=== PATIENT | male | born 1970 | race Caucasian/White ===

== ENCOUNTER 2018-05-31 22:36 | Observation (INO) | payer BC, OTHER ==
--- NOTE | 2018-05-31 22:50 | ED.PDOC ---
History of Present Illness - General Chief Complaint: Abdominal Pain Stated Complaint: rlq pain, nausea Time Seen by Provider: 05/31/18 22:42 Information Source: patient, RN notes reviewed Exam Limitations: no limitations - History of Present Illness Initial Comments: The patient presents to the emergency room complaining of right lower quadrant pain. The patient states that this has been present for the past 48 hours and progressively getting worse. The patient states that this pain is deep, throbbing in nature. He states it is aggravated with palpation. He states that it is alleviated with resting. The patient states no fever/chills/vomiting/ diarrhea/dysuria/testicular pain noted. Review of Systems - Review of Systems Review of Systems: 05/31/18 22:50 A 10 pt review of systems was done at the bedside and is negative except as noted in the patient's HPI Past Medical History (General) - Patient Medical History Hx MRSA: Yes - Leg 2011 MRSA Source:: Wound Family Medical History - Family History Father Living Status: Still Living Hx Family Hypertension: Yes Hx Family Diabetes: Yes Hx Family Cancer: Yes - leukemia Mother Living Status: Hx Family Cancer: Yes - colon Physical Exam - Physical Exam General Appearance: Alert, Well Developed Eyes, Ears, Nose, Throat Exam: PERRL/EOMI Respiratory: chest non-tender, lungs clear Cardiovascular/Chest: regular rate, rhythm Gastrointestinal/Abdominal: normal bowel sounds, soft, tenderness - +rlq ttp noted with +rebound., other Male Genitalia: normal genitalia Back Exam: normal inspection, no CVA tenderness Extremity: normal range of motion Neurologic: alert, oriented x 3 Skin Exam: normal color Progress - Progress Progress: 05/31/18 22:52 MDM PT PRESENTATION APPEARS TO BE AN ACUTE EXACERBATION OF ABD PAIN. APPENDECITIS UNLIKELY DUE TO PRESENTATION WELL LOCATION OF PAIN. PANCREATITIS ALSO ON THE DDX WHICH WE WILL EVALUATE VIA LIPASE. ISCHEMIC BOWEL LOWER ON THE DIFFERENTIAL DUE TO AGE WELL PATIENT VITALS BEING STABLE. AMI/DKA UNLIKELY DUE TO HOW THIS PATIENT PRESENTED AND NO COMPLAINTS OF SIGNS/SYMPTOMS OF THESE ISSUES. COLITIS ALSO A CONSIDERATION DUE TO PAIN LOCATION AND PRESENTATION WHICH WE WILL EVALUATE VIA CT SCAN. RENAL/URETERAL STONES ARE ALSO ON THE DIFFERENTIAL DUE TO PRESENTATION WELL LOCATION OF PAIN ON PRESENTATION. PT WILL RECEIVE BASICS LABS AND CT ABD/PEL TO EVALUATE FOR FOREMENTIONED INTRAABDOMINAL PATHOLOGY 05/31/18 23:57 The patient remains stable at this time. He has been advised of all radiological/lab results at this time. The patient is advised that he is suffering from acute diverticulitis at this time. The patient is advised that due to his pain being so intense in nature he requires admission for iv abx. The patient and his are in agreement w/ this plan. - Consult/PCP Time Called: 00:01 Consult/PCP: VICTORINA PILE DRIVER OPERATOR HELPER Consult Reason/Comments: ACCEPTS THE PATIENT INTO HIS CARE AT THIS TIME. Departure - Departure Clinical Impression: Abdominal pain, Diverticulitis Disposition: Admit Patient Condition: Fair Decision To Admit - Decistion To Admit Decision to Admit Reason: Admit from ER Decision to Admit Date: 06/01/18 Decision to Admit Time: 00:01
[2018-05-31] MEDS ORDERED: SODIUM CHLORIDE 0.9% 1000ML 1,000 ML IVS ONE (22:53)
[2018-05-31] MEDS ORDERED: IV SET AND CAP CHANGE INJ INJ SCH (23:45)
--- NOTE | 2018-05-31 23:48 | CT ---
EXAM: CT abdomen and pelvis with contrast. INDICATION: Abdominal pain, acute. TECHNIQUE: Contiguous axial CT images of the abdomen and pelvis. Intravenous contrast: Present. Oral contrast: Absent. DLP 1416 mGy-cm. This exam was performed according to our departmental dose-optimization program, which includes automated exposure control, adjustment of the mA and/or kV according to patient size and/or use of iterative reconstruction technique. COMPARISON: 10/02/2012. FINDINGS: Lower chest: Partially imaged. Lung bases: Unremarkable. Cardiac apex: Unremarkable. Solid abdominal viscera: Liver: Unremarkable. Gallbladder: Unremarkable. Pancreas: Unremarkable. Spleen: Unremarkable. Adrenal glands: Unremarkable. Right kidney: No hydronephrosis. There is a 1.2 cm cyst. Left kidney: No hydronephrosis. There is a 1.5 cm cyst. There is a punctate nonobstructing stone along the mid pole Urinary bladder: Unremarkable. Abdominal aorta: Unremarkable. Peritoneal: Free fluid: None. Free air: None. Other: No pathologic sized lymph nodes in the upper abdomen. Bowel: Stomach: Unremarkable. Small bowel: Unremarkable. Appendix: Unremarkable. Colon: Sigmoid diverticulitis is noted without evidence of a perforation or abscess/phlegmon formation. Rectum: Unremarkable. Prostate: Unremarkable. Bones: Unremarkable. IMPRESSION: Uncomplicated sigmoid diverticulitis. Normal appendix. Punctate nonobstructing left-sided nephrolithiasis Electronically signed by: Kareem Douglas MD 05/31/2018 11:46 PM RADIATION CONTROL SPECIALIST Workstation: [id number]
[2018-05-31] MEDS ORDERED: cefTRIAXone SODIUM 1 GM VIAL IM ONE (23:51)
[2018-05-31] MEDS ORDERED: metroNIDAZOLE IV PREMIX 500MG 500 MG in PREMIX BAG 1 BAG IVPB ONE (23:52)
[2018-05-31] MEDS ORDERED: SODIUM CHLORIDE 0.9% (FLUSH) 10 ML SYG IV PRN (23:57)
[2018-05-31] MEDS ORDERED: MORPHINE SULFATE INJ 10 MG/ML VIAL IV PRN (23:57)
[2018-05-31] MEDS ORDERED: LACTATED RINGERS 1,000 ML IVS PRN (23:57)
[2018-06-01] MEDS ORDERED: levoFLOXacin 750MG IV 750 MG in PREMIX BAG 1 BAG IVPB SCH
[2018-06-01] MEDS ORDERED: metroNIDAZOLE IV PREMIX 500MG 0 ML IVPB ONE (00:20)
[2018-06-01] MEDS ORDERED: SODIUM CHL 0.9% 100ML MINI-BAG 0 ML IVPB ONE (00:22)
[2018-06-01] MEDS ORDERED: metroNIDAZOLE IV PREMIX 500MG 100 ML IVPB ONE ×2 (00:29→07:53)
[2018-06-01] MEDS ORDERED: LIDOCAINE 1% 2 ML VIAL INJ ONE (00:30)
[2018-06-01] MEDS: metroNIDAZOLE IV PREMIX 500MG 500 MG in PREMIX BAG 1 BAG IVPB SCH ×2 (00:53→07:54)
[2018-06-01] MEDS ORDERED: metroNIDAZOLE 500 MG TAB PO ONE (09:08)
[2018-06-01] MEDS ORDERED: MAGNESIUM HYDROXIDE 30 ML UD PO ONE (09:20)
[2018-06-01 11:07] VITALS: BP 148/74; TEMP 97.8; O2SAT 98
--- NOTE | 2018-06-01 19:19 | SSS ---
SUPERVISING PHYSICIAN: Abdi Wilson M.D. CHIEF COMPLAINT: Right lower quadrant pain with nausea. HISTORY OF PRESENT ILLNESS: Mr. Jimenez is a 48 year-old male patient that presented to the Emergency Department complaining of right lower quadrant pain. He noted that the pain had been present for well over 48 hours but had progressively gotten worse. He noted the pain was deep, throbbing and that it was aggravated with palpation. He states that it is better with rest and was denying any fevers, chills, vomiting, diarrhea, dysuria or testicular pain. His workup in the E. R. showed on laboratory studies, he had a normal white count at 10,500 with a normal differential. Chemistries were unremarkable. Urinalysis was within normal limits except for just a trace of intact blood. Radiographically he had an abdominal/pelvis CT with contrast and per radiology interpretation there was note of uncomplicated sigmoid diverticulitis and a normal appendix with a punctate, nonobstructing left sided nephrolithiasis. The patient was started on Levaquin and Flagyl for uncomplicated diverticulitis but was requiring IV pain management, therefore was admitted overnight for further treatment and evaluation. He was placed in observation in stable condition. PAST MEDICAL HISTORY: 1. Asthma. 2. Hypertension. PAST SURGICAL HISTORY: CURRENT MEDICATIONS: 1. Prilosec 20 mg daily. 2. Losartan potassium 100 mg daily. 3. Ventolin inhaler 1 puff daily as needed. 4. Breo ellipta 200-25 one puff as needed. ALLERGIES: PNEUMONIA VACCINE. FAMILY HISTORY: Father is still alive but has hypertension and type 2 diabetes and leukemia. Mother at age 47 from colon cancer. SOCIAL HISTORY: The patient is . He is a ranch jolly. He lives in [place]. He has never smoked but does use smokeless tobacco and rarely drinks alcohol. Does not use illicit drugs. REVIEW OF SYSTEMS: CONSTITUTIONAL: Denies any fevers, chills, malaise, unintentional weight loss, night sweats. HEENT: Denies any nasal congestion, headaches, sore throat, ear aches, vision changes. RESPIRATORY: Denies any shortness of breath, coughing or wheezing. CARDIOVASCULAR: Denies any chest pains, palpitations, syncopal episode or edema. GASTROINTESTINAL: As noted in History of Present Illness, right lower quadrant pain. GENITOURINARY: Denies any dysuria, hematuria or polyuria or other urinary symptoms. MUSCULOSKELETAL: Denies any arthralgias, myalgias or any CVA tenderness. NEUROLOGIC: Denies any syncopal episodes, seizures, ataxia or other motor or neurological deficits. PHYSICAL EXAMINATION: VITAL SIGNS: On presentation to the E. ., temperature was 97.1, pulse 77, blood pressure 124/83, respirations 18, satting 99% on room air. Weight was 114.7 kg. GENERAL: The patient is well nourished and well hydrated. Appears to be in no acute distress and alert. HEENT: Tympanic membranes are clear bilaterally. Oropharynx was pink and moist without any lesions. NECK: Supple, non-tender with full range of motion. No jugular venous distention. CHEST: Clear to auscultation bilaterally without any rhonchi, wheezing or rales. CARDIOVASCULAR: Regular rate and rhythm without appreciable murmurs, gallops, or rubs. ABDOMEN: Soft with some diffuse tenderness initially on presentation to the E. R. as reported by E. R. physician but on discharge examination was without any abdominal pains. NEUROLOGIC: He is alert and oriented times three. LABORATORY: Initial CBC showed to be within normal limits with white count of 10,500, at discharge 8,200. Hemoglobin and hematocrit were stable at 14.1 and 41.6 respectively with platelet count 233,000. Differential is without a left shift. Admission chemistries showed normal electrolytes, normal lipase and normal liver enzymes at discharge. Electrolytes were normal with BUN 12, creatinine 0.96. Urinalysis just showed a trace of intact blood, otherwise within normal limits. MICROBIOLOGY: He had 2 sets of blood cultures that were negative at discharge. RADIOLOGY: He had an abdominal/pelvis CT with contrast that showed uncomplicated sigmoid diverticulitis with normal appendix and punctate nonobstructing left sided nephrolithiasis. HOSPITAL COURSE: Mr. Jimenez was admitted through the E. . on the late night around midnight of 05/31/18 for uncomplicated sigmoid diverticulitis. He was admitted for some pain control and only required 1 IV pain management and was able to transition to p.o. medication. He was started on Flagyl and Levaquin. He was given fluids, kept NPO overnight and on the morning of discharge was no longer having any abdominal pains. He actually had a bowel movement and was able to transition to clear liquids and prior to discharge he had transitioned to full liquids and was having no complications. ASSESSMENT AT DISCHARGE: VITAL SIGNS: Temperature 97.6, pulse 65, blood pressure 141/79, respirations 16 , satting 99% on room air. GENERAL: The patient is resting comfortably, appears in no acute distress. CHEST: Clear to auscultation. HEART: Regular rate and rhythm. ABDOMEN: Soft with no rebound tenderness. No tenderness to palpation with positive bowel sounds. EXTREMITIES: Without any clubbing, cyanosis or edema. NEUROLOGIC: He is alert and oriented times three. LABORATORY ON DISCHARGE: Continue to show normal electrolytes and normal CBC. ASSESSMENT: 1. Acute sigmoid diverticulitis, uncomplicated as noted on CT findings. Able to transition to p.o. diet and tolerating oral medications, and able to be managed as an outpatient. 2. Acute abdominal pains on admission secondary to #1, improved prior to discharge. 3. Nonobstructing punctate left sided nephrolithiasis. 4. Microhematuria secondary to above. 5. Chronic hypertension, stable. 6. History of asthma without any signs of exacerbation. PLAN: The patient is going to be transitioned to outpatient management as he did well overnight in observation without any complications. He was able to transition to oral diet and was not requiring any IV medications,and was no longer having significant pain. He was instructed on a diet to increase fiber as tolerated and to avoid foods that are known to exacerbate diverticulitis. He reported his last scope was 2 to 3 years previously and again will need to followup with his gastrointestinal specialist to have additional workup as an outpatient. He will need followup with his primary care physician next week, Dr. Morgan. He is to increase his activity as tolerated and again was encouraged to slowly advance his diet as tolerated. New prescriptions at discharge included: 1. Levaquin 750 every day for an additional 9 days. 2. Flagyl 500 mg 3 times a day for an additional 9 days, #27. No refills. 3. Tylenol with codeine #3, one tablet every 4 hours as needed for pain, #30. He was instructed to return to the E. R. should he have any complicating symptoms or other worsening symptoms, or any increase in pain or change in his stools. Condition at discharge was stable and improved. #[id number] MTDD
== END 2018-06-01 11:14 | disposition home or self-care (01) ==
LOC: ER 22:36 → UNDOADMOB 06-01 00:15 → MS 06-01 00:15
PROVIDERS: ADMIT Nurse Practitioner; ATTEND Nurse Practitioner Family
DX: K57.32 Diverticulitis of large intestine without perforation or abscess without bleeding (principal); N20.0 Calculus of kidney; R31.29 Other microscopic hematuria; I10 Essential (primary) hypertension; J45.909 Unspecified asthma, uncomplicated; F17.220 Nicotine dependence, chewing tobacco, uncomplicated; N28.1 Cyst of kidney, acquired; Z79.51 Long term (current) use of inhaled steroids; Z79.899 Other long term (current) drug therapy; Z88.7 Allergy status to serum and vaccine; Z82.49 Family history of ischemic heart disease and other diseases of the circulatory system; Z80.0 Family history of malignant neoplasm of digestive organs; Z83.3 Family history of diabetes mellitus; Z80.6 Family history of leukemia
CPT/HCPCS: 96361; 96367; 96365; 96375; 96376; 96372; J0696; J3490 ×2; J2270; J7030; J1956; J7120; 80048; 80053; 36415 ×2; 81001; 85025 ×2; 87040 ×2; 83690; 74177; 99285

== ENCOUNTER 2019-02-23 21:17 | Emergency (ER) | payer OTHER ==
[2019-02-23] MEDS ORDERED: PROCHLORPERAZINE INJ 10 MG/2 ML VIAL IV ONE (22:11)
[2019-02-23] MEDS ORDERED: DEXAMETHASONE INJ 4 MG/ML VIAL IV ONE (22:11)
[2019-02-23] MEDS ORDERED: ONDANSETRON INJ 4 MG/2 ML VIAL ONE (22:18)
[2019-02-23] MEDS ORDERED: ONDANSETRON INJ 4 MG/2 ML VIAL IV ONE (22:20)
--- NOTE | 2019-02-23 22:45 | CT ---
EXAM DESCRIPTION: Head CLINICAL HISTORY: dizzy/headache COMPARISON: MRI brain July 21, 2013 TECHNIQUE: Multiple helical axial tomographic images were obtained of the head without intravenous contrast. Coronal and sagittal reformatted images were obtained. This exam was performed according to our departmental dose-optimization program, which includes automated exposure control, adjustment of the mA and/or kV according to patient size and/or use of iterative reconstruction technique. FINDINGS: There is no acute intracranial hemorrhage. No mass. No midline shift. No ventriculomegaly. Gaytan-white matter differentiation is maintained. Mild paranasal sinus mucosal thickening is present. Mastoid air cells and middle ear spaces are clear. Orbits and orbital contents are unremarkable. Osseous structures are unremarkable. Surrounding soft tissues are unremarkable. IMPRESSION: No acute intracranial process. Electronically signed by: Gabe Everett MD 02/23/2019 10:44 PM CDT
--- NOTE | 2019-02-23 23:25 | ED.PDOC ---
History of Present Illness - General Chief Complaint: General Stated Complaint: dizziness/nauseated Time Seen by Provider: 02/23/19 22:10 Source: patient Exam Limitations: no limitations - History of Present Illness Initial Comments: Rangel Jimenez 48 y/o male stated that he had been feeling dizzy stating like being spinned around since this morning with feeling of nausea;denies any heavy drinking,head injury,chest pains ,blurry vision.no chronic medical problems.no tinnitus,no hearing loss. Timing/Duration: 4-6 hours Severity: moderate Improving Factors: nothing Worsening Factors: nothing Associated Symptoms: other - see hpi Allergies/Adverse Reactions: Allergies pneumonia vaccine Adverse Reaction (Uncoded 06/01/18 01:30) hives Home Medications: Ambulatory Orders Acetaminophen W/ Codeine [Tylenol W/ CODEINE #3] 1 tablet PO Q4HR PRN #30 06/01/18 Albuterol Inhaler [Ventolin Hfa Inhaler] 1 puff INH PRN 06/01/18 Fluticasone Furoate-Vilanterol [Breo Ellipta 200-25 Mcg/INH] 1 puff INH PRN 06/01/18 Levofloxacin [Levaquin] 750 mg PO DAILY #9 tablet 06/01/18 Losartan Potassium 100 mg PO DAILY 06/01/18 Omeprazole [Prilosec Cap] 20 mg PO ACBK 06/01/18 metroNIDAZOLE [Flagyl] 500 mg PO TID #27 tab 06/01/18 Alprazolam 0.5 mg PO TID PRN #14 tab 02/23/19 predniSONE 20 mg PO DAILY 7 Days #7 tab 02/23/19 Review of Systems - Review of Systems Constitutional: States: no symptoms reported EENTM: States: no symptoms reported Respiratory: States: no symptoms reported Cardiology: States: no symptoms reported Gastrointestinal/Abdominal: States: no symptoms reported Genitourinary: States: no symptoms reported Musculoskeletal: States: no symptoms reported Skin: States: no symptoms reported Neurological: States: see HPI, other - dizziness Past Medical History (General) - Patient Medical History Hx Seizures: No Hx Stroke: No Hx Asthma: Yes Hx of COPD: No Hx Congestive Heart Failure: No Hx Pacemaker: No Hx Hypertension: No Hx Diabetes: No Hx MRSA: Yes MRSA Source:: Wound Surgical History: no surgical history - Vaccination History Hx Tetanus, Diphtheria Vaccination: Yes Hx Influenza Vaccination: No - Social History Hx Tobacco Use: Yes Hx Chewing Tobacco Use: Yes Hx Alcohol Use: No Hx Substance Use: No Hx Substance Use Treatment: No Hx Physical Abuse: No Hx Emotional Abuse: No Hx Suspected Abuse: No Family Medical History - Family History Father Living Status: Still Living Hx Family Hypertension: Yes Hx Family Diabetes: Yes Hx Family Cancer: Yes - leukemia Mother Name: father Living Status: Still Living Hx Family Hypertension: Yes Hx Family Cancer: Yes - colon Age of Onset (years of age): 60 Physical Exam - Physical Exam General Appearance: Alert, Comfortable, No apparent distress Eye Exam: bilateral normal Ears, Nose, Throat: hearing grossly normal, normal ENT inspection, normal pharynx Neck: full range of motion, supple, normal inspection Respiratory: chest non-tender, lungs clear, normal breath sounds Cardiovascular/Chest: normal peripheral pulses, regular rate, rhythm, no murmur Peripheral Pulses: radial,right: 2+, radial,left: 2+ Gastrointestinal/Abdominal: non tender, soft, no organomegaly Back Exam: normal inspection, no CVA tenderness Extremity: no pedal edema, no calf tenderness Neurologic: appointment manager II-XII nml as tested, no motor/sensory deficits, alert, oriented x 3, other - speaks in full sentences Skin Exam: normal color, warm/dry Progress - Progress Progress: 02/23/19 23:27 Vital Signs - 8 hr 02/23/19 02/23/19 21:17 22:41 Temperature 98.3 F 98.5 F Pulse Rate [r 68 70 finger] Respiratory 16 16 Rate Blood Pressure 170/110 138/71 [r arm] O2 Sat by Pulse 98 99 Oximetry - Results/Orders Results/Orders: Vital Signs - 8 hr 02/23/19 02/23/19 21:17 22:41 Temperature 98.3 F 98.5 F Pulse Rate [r 68 70 finger] Respiratory 16 16 Rate Blood Pressure 170/110 138/71 [r arm] O2 Sat by Pulse 98 99 Oximetry Laboratory Results - last 24 hr 02/23/19 02/23/19 21:35 22:46 WBC 9.4 RBC 5.01 Hgb 15.6 Hct 45.4 MCV 90.7 MCH 31.0 MCHC 34.2 RDW 14.2 Plt Count 237 MPV 7.0 L Absolute Neuts (auto) 5.10 Absolute Lymphs (auto) 2.90 Absolute Monos (auto) 0.90 H Absolute Eos (auto) 0.50 H Absolute Basos (auto) 0.00 Neutrophils % 54.1 Lymphocytes % 30.6 Monocytes % 9.3 H Eosinophils % 5.5 H Basophils % 0.5 PT 10.1 INR 1.01 PTT (SP) 24.5 Sodium 137 Potassium 4.0 Chloride 103 Carbon Dioxide 23 Anion Gap 15.0 BUN 13 Creatinine 1.09 BUN/Creatinine Ratio 11.9 Random Glucose 99 Serum Osmolality 274.0 L Calcium 8.9 Magnesium 2.1 Total Bilirubin 0.6 Direct Bilirubin 0.1 Indirect Bilirubin 0.5 AST 28 ALT 30 Alkaline Phosphatase 65 Creatine Kinase 80 CK-MB (CK-2) 1.6 CK-MB (CK-2) % Not Reportable Troponin I < 0.02 Serum Total Protein 7.0 Albumin 3.9 Urine Color Yellow Urine Appearance Clear Urine pH 7.0 Ur Specific [place] 1.025 Urine Protein Negative Urine Glucose (UA) Negative Urine Ketones Negative Urine Blood Negative Urine Nitrite Negative Urine Bilirubin Negative Urine Urobilinogen 0.2 Ur Leukocyte Esterase Negative Urine RBC 0-1 Urine WBC 0-1 Ur Epithelial Cells 0 Amorphous Sediment Trace Urine Bacteria 0 Urine Mucus Moderate Discuss all test results with patient - EKG/XRAY/CT CT Ordered: Yes - head-no acute abnormalities noted Departure - Departure Clinical Impression: Vertigo Time of Disposition: 23:34 Disposition: Discharge to Home or Self Care Condition: Fair Departure Forms: ED Discharge - Pt. Copy, Patient Portal Self Enrollment Instructions: Vertigo (a Type of Dizziness), Labyrinthitis, Vertigo (a Type of Dizziness) (DC) Referrals: MEREDITH JACINTO MD [Primary Care Provider] - 1-2 Weeks Prescriptions: Alprazolam 0.5 mg PO TID PRN #14 tab PRN Reason: Dizziness predniSONE 20 mg PO DAILY 7 Days #7 tab Home Medications: Ambulatory Orders Acetaminophen W/ Codeine [Tylenol W/ CODEINE #3] 1 tablet PO Q4HR PRN #30 06/01/18 Albuterol Inhaler [Ventolin Hfa Inhaler] 1 puff INH PRN 06/01/18 Fluticasone Furoate-Vilanterol [Breo Ellipta 200-25 Mcg/INH] 1 puff INH PRN 06/01/18 Levofloxacin [Levaquin] 750 mg PO DAILY #9 tablet 06/01/18 Losartan Potassium 100 mg PO DAILY 06/01/18 Omeprazole [Prilosec Cap] 20 mg PO ACBK 06/01/18 metroNIDAZOLE [Flagyl] 500 mg PO TID #27 tab 06/01/18 Alprazolam 0.5 mg PO TID PRN #14 tab 02/23/19 predniSONE 20 mg PO DAILY 7 Days #7 tab 02/23/19 Additional Instructions: Return to emergency room as needed;follow up with primary Md 27 February 2019 for re check;NEED TO CONINUE TAKING YOUR HIGH BLOOD PRESSURE MEDICATION
[2019-02-23] MEDS ORDERED: predniSONE 10 MG TAB PO ONE (23:36)
[2019-02-23] MEDS ORDERED: ALPRAZolam 0.25 MG TAB PO ONE (23:36)
[2019-02-23 23:54] VITALS: BP 156/83; TEMP 97.2; O2SAT 96
== END 2019-02-23 23:54 | disposition home or self-care (01) ==
LOC: ER 21:17
DX: R42 Dizziness and giddiness (principal); J45.909 Unspecified asthma, uncomplicated; Z87.891 Personal history of nicotine dependence; Z79.899 Other long term (current) drug therapy; Z88.7 Allergy status to serum and vaccine
CPT/HCPCS: 36415; 70450; 80048; 80076; 81001; 82550; 82553; 84484; 85025; 85610; 85730; J0780; J1100; J2405; J7512

== ENCOUNTER → 2019-07-17 | Outpatient (CLI) | payer OTHER | LOC: GMAE 10:35 | PROVIDERS: ATTEND Family Medicine | DX: Z00.00 Encounter for general adult medical examination without abnormal findings (principal) ==

== ENCOUNTER → 2020-09-03 | Outpatient (CLI) | payer OTHER ==
--- NOTE | 2020-09-03 12:20 | CT ---
CT ABDOMEN PELVIS WITH IV CONTRAST HISTORY: 50 years Male ABDOMINAL PAIN COMPARISON: May 31, 2018. TECHNIQUE: Helical tomographic images of the abdomen and pelvis were obtained after the administration of intravenous contrast per facility protocol. Coronal and sagittal reformatted images were also provided. This exam was performed according to our departmental dose-optimization program, which includes automated exposure control, adjustment of the mA and/or kV according to patient size and/or use of iterative reconstruction technique. FINDINGS: Included thorax: Unremarkable. Liver: Unremarkable. Gallbladder and biliary ducts: Unremarkable. Pancreas: Unremarkable. Spleen: Unremarkable. Adrenal glands: Unremarkable. Kidneys and ureters: Unremarkable. Urinary bladder: Decompressed and otherwise not well assessed. Reproductive organs: Prostate appears unremarkable. Bowel/peritoneal cavity: Scattered colonic diverticula. Short segment bowel wall thickening and adjacent pericolonic inflammatory changes are demonstrated at the distal sigmoid colon, compatible with acute diverticulitis. Location is similar compared to the prior study performed May 31, 2018. No evidence of perforation or abscess formation. No free intraperitoneal fluid observed. Lymph nodes: No lymphadenopathy detected. Vessels: Unremarkable. Abdominal wall: Unremarkable. Bones: No acute process detected. IMPRESSION: Findings consistent with acute uncomplicated diverticulitis. Location is consistent with similar findings seen on the CT performed May 31, 2018. While this likely represents recurrence, malignant processes may occasionally mimic diverticulitis. If resection is not pursued, consider correlation with colonoscopy when clinically appropriate. Electronically signed by: Km Miller MD 09/03/2020 12:19 PM GANG VIBRATOR OPERATOR
== END ==
LOC: LAB.O 10:56
PROVIDERS: ATTEND Family Medicine
DX: R10.31 Right lower quadrant pain (principal); R10.32 Left lower quadrant pain; R10.33 Periumbilical pain; K63.9 Disease of intestine, unspecified